=== PATIENT | male | born 1990 | race Two or more races ===

== ENCOUNTER 2019-03-30 13:20 | Emergency (ER) | payer MEDICAID ==
[~2019-03-30] VITALS: Ht 177.8 cm; Wt 90.7 kg
[2019-03-30 16:39] VITALS: BP 100/62
== END 2019-03-30 16:43 | disposition home or self-care (01) ==
LOC: ER 13:20
DX: F32.9 Major depressive disorder, single episode, unspecified (principal); Z76.0 Encounter for issue of repeat prescription